=== PATIENT | male | born 1950 | race Caucasian/White ===

== ENCOUNTER 2020-08-10 10:42 | Inpatient (IN) | payer MEDICARE ==
[~2020-08-10] VITALS: Ht 180.3 cm; Wt 108.4 kg
[~2020-08-10 10:42] MED LIST: WARFARIN SODIUM4 MG PO
[2020-08-10 11:37] LABS: HEMOGLOBIN 13.5 gm/dl (14.0-17.5); RED BLOOD COUNT 4.23 M/UL (4.20-5.50); WHITE BLOOD COUNT 5.8 K/UL (4.5-11.0)
[2020-08-10 12:02] LABS: BUN/CREATININE RATIO 11 (0-10)
[2020-08-10] MEDS ORDERED: ZETIA10 MG PO (13:44)
[2020-08-10] MEDS ORDERED: CRESTOR 10 MG T10 MG PO (13:45)
[2020-08-10] MEDS ORDERED: POTASSIUM CHLO10 MEQ PO (13:46)
[2020-08-10] MEDS ORDERED: WARFARIN SODIUM4 MG PO (15:32)
[2020-08-10] MEDS ORDERED: VENTOLIN HFA 66.7 GM INH (16:33)
[2020-08-10] MEDS ORDERED: VITAMIN B-121000 MC2 SL (16:34)
[2020-08-10] MEDS ORDERED: ECOTRIN81 MG PO (16:35)
[2020-08-10] MEDS ORDERED: SENNA PLUS 8.61 EACH PO (16:36)
[2020-08-10] MEDS ORDERED: LASIX40 MG PO (16:37)
[2020-08-10] MEDS ORDERED: FLONASE 0.05% N16 GM (16:37)
[2020-08-10] MEDS ORDERED: NEURONTIN600 MG PO (16:38)
[2020-08-10] MEDS ORDERED: NEURONTIN300 MG PO (16:38)
[2020-08-10] MEDS ORDERED: SYNTHROID88 MCG PO (16:39)
[2020-08-10] MEDS ORDERED: ZESTRIL/PRINIVI10 MG PO (16:39)
[2020-08-10] MEDS ORDERED: CLARITIN10 MG PO (16:40)
[2020-08-10] MEDS ORDERED: METOPROLOL SUC200 MG PO (16:40)
[2020-08-10] MEDS ORDERED: MINIPRESS CAP 11 MG PO (16:41)
[2020-08-10] MEDS ORDERED: FLOMAX 0.4 MG0.4 MG PO (16:43)
[2020-08-10] MEDS ORDERED: ALDACTONE 25MG25 MG PO (16:43)
[2020-08-10] MEDS ORDERED: DESYREL 50 MG T50 MG PO (16:44)
[2020-08-11 03:24] LABS: HEMOGLOBIN 13.9 gm/dl (14.0-17.5); RED BLOOD COUNT 4.22 M/UL (4.20-5.50)
[2020-08-11 03:34] LABS: WHITE BLOOD COUNT 7.3 K/UL (4.5-11.0)
[2020-08-11 03:40] LABS: BUN/CREATININE RATIO 14 (0-10)
--- NOTE | 2020-08-11 09:05 | NUR ---
WAITING FOR PHARMACY TO BRING LEVOTHYROXINE
[2020-08-12 04:11] LABS: BUN/CREATININE RATIO 19 (0-10)
[2020-08-13 02:43] LABS: BUN/CREATININE RATIO 22 (0-10)
[2020-08-14 06:59] LABS: BUN/CREATININE RATIO 26 (0-10)
[2020-08-14] MEDS ORDERED: MEDROL4 MG PO (12:15)
== END 2020-08-14 18:45 | disposition home or self-care (01) | DRG 177 ==
LOC: ER1 10:42 → CDU 13:10 → MED SURG 4 22:15
PROVIDERS: Emergency Medicine; ADMIT Internal Medicine
PROC: XW033E5 Introduction of Remdesivir Anti-infective into Peripheral Vein, Percutaneous Approach, New Technology Group 5 (ICD-10-PCS; principal; 2020-08-10)
PROC: XW13325 Transfusion of Convalescent Plasma (Nonautologous) into Peripheral Vein, Percutaneous Approach, New Technology Group 5 (ICD-10-PCS; 2020-08-10)
PROC: 8E0ZXY6 Isolation (ICD-10-PCS; 2020-08-10)
DX: U07.1 COVID-19 (principal); J12.82 Pneumonia due to coronavirus disease 2019; J96.01 Acute respiratory failure with hypoxia; I69.854 Hemiplegia and hemiparesis following other cerebrovascular disease affecting left non-dominant side; I48.91 Unspecified atrial fibrillation; Z79.01 Long term (current) use of anticoagulants; J44.9 Chronic obstructive pulmonary disease, unspecified; I10 Essential (primary) hypertension; E03.9 Hypothyroidism, unspecified; I50.9 Heart failure, unspecified; Z98.890 Other specified postprocedural states; Z85.828 Personal history of other malignant neoplasm of skin
CPT/HCPCS: 0240U; 36415; 36600; 70450; 71045; 80048; 80053; 81001; 82550; 82553; 82803; 83874; 83880; 84484; 85025; 85610; 85730; 87040; 93005; 94640; 94664; 94760; 96365; 96366; 96367; 96375; 99285; J0696; J1100; J1650; J2920; J7030

== ENCOUNTER 2020-08-19 23:14 | Emergency (ER) | payer MEDICARE ==
[~2020-08-19 23:14] MED LIST changes: +ALDACTONE 25MG25 MG PO; +CLARITIN10 MG PO; +CRESTOR 10 MG T10 MG PO; +DESYREL 50 MG T50 MG PO; +ECOTRIN81 MG PO; +FLOMAX 0.4 MG0.4 MG PO; +FLONASE 0.05% N16 GM; +LASIX40 MG PO; +MEDROL4 MG PO; +METOPROLOL SUC200 MG PO; +MINIPRESS CAP 11 MG PO; +NEURONTIN300 MG PO; +NEURONTIN600 MG PO; +POTASSIUM CHLO10 MEQ PO; +SENNA PLUS 8.61 EACH PO; +SYNTHROID88 MCG PO; +VENTOLIN HFA 66.7 GM INH; +VITAMIN B-121000 MC2 SL; +ZESTRIL/PRINIVI10 MG PO; +ZETIA10 MG PO
[2020-08-20 00:42] LABS: RED BLOOD COUNT 4.82 M/UL (4.20-5.50); WHITE BLOOD COUNT 11.1 K/UL (4.5-11.0)
[2020-08-20 01:06] LABS: BUN/CREATININE RATIO 18 (0-10)
[2020-08-20] MEDS ORDERED: IPRAT-ALBUT 0.5-3 ML INH (01:26)
== END 2020-08-20 02:00 | disposition home or self-care (01) ==
LOC: ER1 23:14
PROVIDERS: Physician Assistant
DX: U07.1 COVID-19 (principal); J12.82 Pneumonia due to coronavirus disease 2019; R09.02 Hypoxemia; I11.0 Hypertensive heart disease with heart failure; I50.9 Heart failure, unspecified; Z86.73 Personal history of transient ischemic attack (TIA), and cerebral infarction without residual deficits; J44.9 Chronic obstructive pulmonary disease, unspecified; I48.91 Unspecified atrial fibrillation; Z88.8 Allergy status to other drugs, medicaments and biological substances
CPT/HCPCS: 36415; 36600; 71045; 80053; 82550; 82553; 82803; 83605; 83874; 84484; 85025; 85610; 86140; 93005; 99285; J7030

== ENCOUNTER → 2020-08-25 | Outpatient (CLI) | payer MEDICARE ==
[~2020-08-25] MED LIST changes: +IPRAT-ALBUT 0.5-3 ML INH
== END ==
LOC: EXRD 10:09
DX: U07.1 COVID-19 (principal); J12.82 Pneumonia due to coronavirus disease 2019; R91.8 Other nonspecific abnormal finding of lung field
CPT/HCPCS: 71046

== ENCOUNTER → 2020-09-13 | Outpatient (CLI) | payer MEDICARE | LOC: KOH-I 08:30 | DX: Z87.891 Personal history of nicotine dependence (principal); R91.1 Solitary pulmonary nodule; R91.8 Other nonspecific abnormal finding of lung field | CPT/HCPCS: 71271 ==

== ENCOUNTER → 2020-11-02 | Outpatient (CLI) | payer MEDICARE | LOC: HEART 5 04-11 15:30 | DX: R00.2 Palpitations (principal); R06.02 Shortness of breath; R07.9 Chest pain, unspecified ==

== ENCOUNTER → 2020-11-10 | Outpatient (CLI) | payer MEDICARE | LOC: ECHO 11:00 | DX: I50.22 Chronic systolic (congestive) heart failure (principal); I42.0 Dilated cardiomyopathy; I08.0 Rheumatic disorders of both mitral and aortic valves; R93.1 Abnormal findings on diagnostic imaging of heart and coronary circulation | CPT/HCPCS: ECHO; 93306 ==

== ENCOUNTER → 2020-12-13 | Outpatient (CLI) | payer MEDICARE | LOC: HEART 5 12-12 09:30 | DX: I25.119 Atherosclerotic heart disease of native coronary artery with unspecified angina pectoris (principal); R94.39 Abnormal result of other cardiovascular function study | CPT/HCPCS: 78452; A9502; J2785 ==

== ENCOUNTER → 2021-04-28 | Outpatient (CLI) | payer MEDICARE ==
[~2021-04-28] MED LIST changes: +ALLEGRA ALLERGY60 MG PO; +DULCOLAX STOOL100 MG PO; +GUAIFENESIN400 MG PO; +ISOSORBIDE MONO30 MG PO; +K-TAB ER10 MEQ PO; +MENTHOL-CAMPHO120 GM TP; +OMEGA 3 1,0001 EACH PO; +PROAIR HFA8.5 GM INH; +PROTONIX40 M1 PO; +VALIUM5 MG PO; +VITAMIN D31250 MCG PO
[2021-04-28 11:09] LABS: HEMOGLOBIN 15.5 gm/dl (14.0-17.5); RED BLOOD COUNT 4.67 M/UL (4.20-5.50); WHITE BLOOD COUNT 5.6 K/UL (4.5-11.0)
[2021-04-28 11:34] LABS: BUN/CREATININE RATIO 15 (0-10)
== END ==
LOC: LAB 10:48
PROVIDERS: Internal Medicine Cardiovascular Disease
DX: I42.0 Dilated cardiomyopathy (principal); I48.91 Unspecified atrial fibrillation; I20.9 Angina pectoris, unspecified; R94.39 Abnormal result of other cardiovascular function study; I10 Essential (primary) hypertension
CPT/HCPCS: 36415; 71046; 80048; 85025; 85610

== ENCOUNTER → 2021-05-02 | Outpatient (CLI) | payer MEDICARE | LOC: CATH 07:44 | DX: I25.118 Atherosclerotic heart disease of native coronary artery with other forms of angina pectoris (principal); I13.0 Hypertensive heart and chronic kidney disease with heart failure and stage 1 through stage 4 chronic kidney disease, or unspecified chronic kidney disease; I50.22 Chronic systolic (congestive) heart failure; N18.30 Chronic kidney disease, stage 3 unspecified; I42.0 Dilated cardiomyopathy; I48.21 Permanent atrial fibrillation; M19.90 Unspecified osteoarthritis, unspecified site; E78.00 Pure hypercholesterolemia, unspecified; E78.5 Hyperlipidemia, unspecified; E03.9 Hypothyroidism, unspecified; I47.2 Ventricular tachycardia; I49.3 Ventricular premature depolarization; E53.8 Deficiency of other specified B group vitamins; E55.9 Vitamin D deficiency, unspecified; F41.9 Anxiety disorder, unspecified; F32.A Depression, unspecified; G47.00 Insomnia, unspecified; G47.30 Sleep apnea, unspecified; Z86.16 Personal history of COVID-19; Z79.01 Long term (current) use of anticoagulants; Z79.899 Other long term (current) drug therapy | CPT/HCPCS: 99152; C1769; C1894; J1644; J2250; J3010; J7030; Q9967 ==